=== PATIENT | female | born 1955 | race Caucasian/White ===

== ENCOUNTER → 2017-02-14 | Day surgery (SDC) | payer OTHER | LOC: MSO 12:44 | DX: R19.4 Change in bowel habit (principal); R19.5 Other fecal abnormalities; Z80.0 Family history of malignant neoplasm of digestive organs; Z86.010 Personal history of colon polyps; I10 Essential (primary) hypertension; K64.4 Residual hemorrhoidal skin tags; K64.0 First degree hemorrhoids | CPT/HCPCS: 00810; J3010; J7120 ==

== ENCOUNTER 2017-08-11 10:03 | Inpatient (IN) | payer OTHER ==
[~2017-08-11] VITALS: Ht 152.4 cm; Wt 98.0 kg
[2017-08-14] MEDS ORDERED: RIFAMPIN300 M1 PO (15:19)
[2017-08-14] MEDS ORDERED: PRIMLEV PO (15:23)
[2017-08-14] MEDS ORDERED: TIZANIDINE HYDRO2 M1 PO (15:24)
[2017-08-14] MEDS ORDERED: BUMEX 1MG TA1 MG/TA1 PO (15:25)
[2017-08-14] MEDS ORDERED: DULOXETINE60 MG PO (15:26)
[2017-08-14] MEDS ORDERED: EZETIMIBE-SIMV1 EAC3 PO (15:27)
[2017-08-14] MEDS ORDERED: LISINOPRIL5 MG PO (15:28)
[2017-08-14] MEDS ORDERED: POTASSIUM CHLO20 ME4 PO (15:28)
[2017-08-14] MEDS ORDERED: AMBIEN5 M1 PO (15:29)
[2017-08-14] MEDS ORDERED: PROAIR HFA0.09 MG/AC IH (15:31)
[2017-08-14] MEDS ORDERED: BIOTIN5 M1 PO (15:32)
[2017-08-14] MEDS ORDERED: NATURAL FISH1200 MG PO (15:33)
[2017-08-14] MEDS ORDERED: CRANBERRY400 M2 PO (15:33)
[2017-08-14] MEDS ORDERED: FLAXSEED1000 MG PO (15:34)
[2017-08-14] MEDS ORDERED: IBU800 M1 PO (15:35)
[2017-08-14] MEDS ORDERED: HIPREX PO (15:37)
[2017-08-14] MEDS ORDERED: MULTIVITAMIN1 SGL PO (15:38)
[2017-08-14] MEDS ORDERED: NITROGLYCERIN0.4 M1 SL (15:39)
[2017-08-14] MEDS ORDERED: PROBIOTIC1 EAC1 PO (15:41)
[2017-08-14] MEDS ORDERED: PROMETHAZINE (15:42)
[2017-08-14] MEDS ORDERED: VITAMIN C PURE500 M1 PO (15:44)
[2017-08-14 15:45] VITALS: BP 158/95
[2017-08-14] MEDS ORDERED: PERCOCET 325 MG1 TAB PO (15:48)
[2017-08-14] MEDS ORDERED: OXYCOD (15:49)
[2017-08-14] MEDS ORDERED: APAP (15:49)
[2017-08-14 19:01] VITALS: BP 158/92
[2017-08-15 06:14] VITALS: BP 131/71
[2017-08-15 18:23] VITALS: BP 156/74
[2017-08-16 06:32] VITALS: BP 153/79
[2017-08-16 13:24] LABS: HEMOGLOBIN 11.5 g/dL (12.5-16.0); MEAN CELL VOLUME 92 fl (78-100); MEAN CORPUSCULAR HEMOGLOBIN 29 pg (27-31); MEAN CORPUSCULAR HGB CONC 32 g/dL (33-37); MEAN PLATELET VOLUME 8.9 fl (7.4-10.4); PLATELET COUNT 333 K/mm3 (130-400); RED BLOOD COUNT 3.92 M/mm3 (4.10-5.30); WHITE BLOOD COUNT 8.5 K/mm3 (4.8-10.8)
[2017-08-16 13:35] LABS: BUN/CREATININE RATIO 17.2 (6.0-26.0); CALCIUM 9.1 mg/dL (8.4-10.2); CARBON DIOXIDE 29 mmol/L (22-30); GLUCOSE 113 mg/dL (65-105); LYMPHOCYTE 9 % (20-51); MONOCYTE 4 % (3-10); NEUTROPHILS 72 % (42-75); SODIUM 142 mmol/L (137-145)
[2017-08-16] MEDS ORDERED: RIFAMPIN 3300 MG/CAP PO (15:00)
[2017-08-16] MEDS ORDERED: KLONOPIN 0.5MG0.5 MG PO (15:02)
[2017-08-16 17:49] VITALS: BP 145/76
== END 2017-08-16 20:49 | disposition home or self-care (01) | DRG 863 ==
LOC: MED/SURG 10:03
PROVIDERS: ADMIT Physician Assistant
DX: T81.4XXA Infection following a procedure, initial encounter (principal); B95.62 Methicillin resistant Staphylococcus aureus infection as the cause of diseases classified elsewhere; E03.9 Hypothyroidism, unspecified; I10 Essential (primary) hypertension; F41.9 Anxiety disorder, unspecified; R53.1 Weakness; G89.29 Other chronic pain; Z23 Encounter for immunization
CPT/HCPCS: J3370; J7050

== ENCOUNTER 2017-08-18 15:00 | Outpatient (RCR) | payer OTHER ==
[2017-08-17 18:12] VITALS: BP 162/92
[2017-08-17 18:51] VITALS: BP 169/94
[~2017-08-18] VITALS: Ht 165.1 cm; Wt 98.0 kg
[~2017-08-18 15:00] MED LIST: AMBIEN5 M1 PO; APAP; BIOTIN5 M1 PO; BUMEX 1MG TA1 MG/TA1 PO; CRANBERRY400 M2 PO; DULOXETINE60 MG PO; EZETIMIBE-SIMV1 EAC3 PO; FLAXSEED1000 MG PO; HIPREX PO; IBU800 M1 PO; KLONOPIN 0.5MG0.5 MG PO; LISINOPRIL5 MG PO; MULTIVITAMIN1 SGL PO; NATURAL FISH1200 MG PO; NITROGLYCERIN0.4 M1 SL; OXYCOD; PERCOCET 325 MG1 TAB PO; POTASSIUM CHLO20 ME4 PO; PRIMLEV PO; PROAIR HFA0.09 MG/AC IH; PROBIOTIC1 EAC1 PO; PROMETHAZINE; RIFAMPIN 3300 MG/CAP PO; RIFAMPIN300 M1 PO; TIZANIDINE HYDRO2 M1 PO; VITAMIN C PURE500 M1 PO
[2017-08-18 17:40] VITALS: BP 155/83
[2017-08-18 19:28] VITALS: BP 172/85
[2017-08-21 10:50] VITALS: BP 168/97
[2017-08-24 10:15] VITALS: BP 151/85
[2017-08-28 10:36] VITALS: BP 162/84
[2017-08-28 10:38] VITALS: BP 162/84
[2017-08-30 10:10] VITALS: BP 135/86
[2017-08-31 10:43] VITALS: BP 138/78
[2017-09-06 13:27] VITALS: BP 149/77
[2017-09-11 10:24] VITALS: BP 124/74
[2017-09-18 10:00] VITALS: BP 122/68
[2017-09-19 14:37] VITALS: BP 124/63
[2017-09-19 16:31] VITALS: BP 139/78
[2017-09-20 10:50] VITALS: BP 156/92
[2017-09-25 10:59] VITALS: BP 141/77
[2017-10-02 10:20] VITALS: BP 169/90
[2017-10-10 10:15] VITALS: BP 168/101
[2017-10-10 11:00] VITALS: BP 165/95
[2017-10-14 14:39] VITALS: BP 103/80
== END 2017-10-14 15:00 | disposition home or self-care (01) ==
LOC: AMSURD 15:00
DX: Z45.2 Encounter for adjustment and management of vascular access device (principal)
CPT/HCPCS: J0878; J1644; J2997; J3370; J7050

== ENCOUNTER → 2017-08-21 | Outpatient (CLI) | payer OTHER ==
[2017-08-18 19:28] VITALS: BP 172/85
[2017-08-21 11:48] LABS: CALCIUM 9.8 mg/dL (8.4-10.2); POTASSIUM 3.7 mmol/L (3.6-5.0)
[2017-08-21 12:26] LABS: HEMATOCRIT 39.7 % (37.0-47.0); HEMOGLOBIN 12.4 g/dL (12.5-16.0); MEAN CELL VOLUME 92 fl (78-100); MEAN CORPUSCULAR HEMOGLOBIN 29 pg (27-31); MEAN CORPUSCULAR HGB CONC 31 g/dL (33-37); MEAN PLATELET VOLUME 10.2 fl (7.4-10.4); PLATELET COUNT 346 K/mm3 (130-400); RED CELL DISTRIBUTION WIDTH 14.8 % (11.5-14.5); WHITE BLOOD COUNT 7.4 K/mm3 (4.8-10.8)
[2017-08-21 13:47] LABS: LYMPHOCYTE 23 % (20-51); MONOCYTE 7 % (3-10); NEUTROPHILS 61 % (42-75)
[2017-08-21 22:25] LABS: C-REACTIVE PROTEIN XXX
== END ==
LOC: LAB 10:17
PROVIDERS: Family Medicine
DX: T81.4XXA Infection following a procedure, initial encounter (principal); Z79.2 Long term (current) use of antibiotics; Z51.81 Encounter for therapeutic drug level monitoring; Z45.2 Encounter for adjustment and management of vascular access device

== ENCOUNTER → 2017-08-24 | Outpatient (CLI) | payer OTHER ==
[2017-08-21 10:50] VITALS: BP 168/97
== END ==
LOC: LAB 10:07
DX: Z51.81 Encounter for therapeutic drug level monitoring (principal); Z79.2 Long term (current) use of antibiotics

== ENCOUNTER → 2017-08-28 | Outpatient (CLI) | payer OTHER ==
[2017-08-24 10:15] VITALS: BP 151/85
[2017-08-28 10:37] LABS: HEMATOCRIT 41.1 % (37.0-47.0); HEMOGLOBIN 12.9 g/dL (12.5-16.0); MEAN CELL VOLUME 92 fl (78-100); MEAN CORPUSCULAR HEMOGLOBIN 29 pg (27-31); MEAN CORPUSCULAR HGB CONC 31 g/dL (33-37); MEAN PLATELET VOLUME 9.8 fl (7.4-10.4); PLATELET COUNT 282 K/mm3 (130-400); RED BLOOD COUNT 4.45 M/mm3 (4.10-5.30); WHITE BLOOD COUNT 5.6 K/mm3 (4.8-10.8)
[2017-08-28 10:51] LABS: LYMPHOCYTE 21 % (20-51); MONOCYTE 10 % (3-10); NEUTROPHILS 56 % (42-75)
[2017-08-28 11:06] LABS: BUN/CREATININE RATIO 23.8 (6.0-26.0); CALCIUM 9.4 mg/dL (8.4-10.2); POTASSIUM 3.8 mmol/L (3.6-5.0)
[2017-08-28 20:59] LABS: C-REACTIVE PROTEIN XXX
== END ==
LOC: LAB 09:58
PROVIDERS: Internal Medicine Infectious Disease
DX: L03.312 Cellulitis of back [any part except buttock and flank] (principal)

== ENCOUNTER → 2017-08-31 | Outpatient (CLI) | payer OTHER ==
[2017-08-30 10:10] VITALS: BP 135/86
[2017-08-31 10:46] LABS: HEMATOCRIT 40.1 % (37.0-47.0); HEMOGLOBIN 12.7 g/dL (12.5-16.0); MEAN CELL VOLUME 92 fl (78-100); MEAN CORPUSCULAR HEMOGLOBIN 29 pg (27-31); MEAN CORPUSCULAR HGB CONC 32 g/dL (33-37); MEAN PLATELET VOLUME 9.9 fl (7.4-10.4); PLATELET COUNT 213 K/mm3 (130-400); RED BLOOD COUNT 4.37 M/mm3 (4.10-5.30); RED CELL DISTRIBUTION WIDTH 14.8 % (11.5-14.5); WHITE BLOOD COUNT 4.5 K/mm3 (4.8-10.8)
[2017-08-31 11:14] LABS: LYMPHOCYTE 15 % (20-51); MONOCYTE 8 % (3-10); NEUTROPHILS 58 % (42-75)
[2017-08-31 11:21] LABS: BUN/CREATININE RATIO 19.1 (6.0-26.0); CALCIUM 9.2 mg/dL (8.4-10.2); POTASSIUM 3.9 mmol/L (3.6-5.0)
[2017-09-01 06:41] LABS: C-REACTIVE PROTEIN XXX
== END ==
LOC: LAB 09:58
PROVIDERS: Family Medicine
DX: S31.000A Unspecified open wound of lower back and pelvis without penetration into retroperitoneum, initial encounter (principal); L08.9 Local infection of the skin and subcutaneous tissue, unspecified

== ENCOUNTER → 2017-09-04 | Outpatient (CLI) | payer OTHER ==
[2017-08-31 10:43] VITALS: BP 138/78
[2017-09-04 09:12] LABS: HEMATOCRIT 38.3 % (37.0-47.0); HEMOGLOBIN 12.2 g/dL (12.5-16.0); MEAN CELL VOLUME 90 fl (78-100); MEAN CORPUSCULAR HEMOGLOBIN 29 pg (27-31); MEAN CORPUSCULAR HGB CONC 32 g/dL (33-37); MEAN PLATELET VOLUME 9.4 fl (7.4-10.4); PLATELET COUNT 190 K/mm3 (130-400); RED BLOOD COUNT 4.24 M/mm3 (4.10-5.30); RED CELL DISTRIBUTION WIDTH 14.5 % (11.5-14.5); WHITE BLOOD COUNT 4.8 K/mm3 (4.8-10.8)
--- NOTE | 2017-09-04 09:16 | NUR ---
patient here this am for lab draw per PICC line, this was completed without difficulty, specs to lab, cap was also changed at this time
[2017-09-04 09:18] LABS: BUN/CREATININE RATIO 17.7 (6.0-26.0); CALCIUM 9.1 mg/dL (8.4-10.2); POTASSIUM 3.8 mmol/L (3.6-5.0)
[2017-09-04 09:20] LABS: BAND 2 % (0-10); LYMPHOCYTE 20 % (20-51); MONOCYTE 2 % (3-10); NEUTROPHILS 62 % (42-75)
[2017-09-04 22:00] LABS: C-REACTIVE PROTEIN XXX
== END ==
LOC: LAB 08:35
PROVIDERS: Internal Medicine Infectious Disease
DX: S31.000A Unspecified open wound of lower back and pelvis without penetration into retroperitoneum, initial encounter (principal); L08.9 Local infection of the skin and subcutaneous tissue, unspecified

== ENCOUNTER → 2017-09-11 | Outpatient (CLI) | payer OTHER ==
[2017-09-06 13:27] VITALS: BP 149/77
[2017-09-11 10:33] LABS: EOS % 0.9 % (1.0-5.0); HEMATOCRIT 39.6 % (37.0-47.0); HEMOGLOBIN 12.5 g/dL (12.5-16.0); LYMPH# 1.1 (1.50-4.00); MEAN CELL VOLUME 90 fl (78-100); MEAN CORPUSCULAR HEMOGLOBIN 28 pg (27-31); MEAN CORPUSCULAR HGB CONC 32 g/dL (33-37); MEAN PLATELET VOLUME 9.2 fl (7.4-10.4); MONO # 0.5 (0.20-0.80); NEU # 3.1 (1.40-6.50); PLATELET COUNT 293 K/mm3 (130-400); RED CELL DISTRIBUTION WIDTH 14.3 % (11.5-14.5); WHITE BLOOD COUNT 4.7 K/mm3 (4.8-10.8)
[2017-09-11 10:45] LABS: BUN/CREATININE RATIO 22.6 (6.0-26.0); CALCIUM 9.5 mg/dL (8.4-10.2); POTASSIUM 3.9 mmol/L (3.6-5.0)
[2017-09-11 20:12] LABS: C-REACTIVE PROTEIN XXX
== END ==
LOC: LAB 09:52
PROVIDERS: Internal Medicine Infectious Disease
DX: L08.9 Local infection of the skin and subcutaneous tissue, unspecified (principal)

== ENCOUNTER → 2017-09-18 | Outpatient (CLI) | payer OTHER ==
[2017-09-11 10:24] VITALS: BP 124/74
[2017-09-18 10:08] LABS: HEMATOCRIT 40.7 % (37.0-47.0); HEMOGLOBIN 12.7 g/dL (12.5-16.0); LYMPH# 1.4 (1.50-4.00); MEAN CELL VOLUME 89 fl (78-100); MEAN CORPUSCULAR HEMOGLOBIN 28 pg (27-31); MEAN CORPUSCULAR HGB CONC 31 g/dL (33-37); MEAN PLATELET VOLUME 9.8 fl (7.4-10.4); MONO # 0.6 (0.20-0.80); NEU # 3.9 (1.40-6.50); PLATELET COUNT 303 K/mm3 (130-400); RED BLOOD COUNT 4.57 M/mm3 (4.10-5.30); RED CELL DISTRIBUTION WIDTH 13.8 % (11.5-14.5); WHITE BLOOD COUNT 5.8 K/mm3 (4.8-10.8)
[2017-09-18 10:15] LABS: BUN/CREATININE RATIO 22.4 (6.0-26.0); CALCIUM 9.1 mg/dL (8.4-10.2); POTASSIUM 3.8 mmol/L (3.6-5.0)
[2017-09-18 20:46] LABS: C-REACTIVE PROTEIN XXX
== END ==
LOC: LAB 09:39
PROVIDERS: Internal Medicine Infectious Disease
DX: L08.9 Local infection of the skin and subcutaneous tissue, unspecified (principal)

== ENCOUNTER → 2017-09-19 | Outpatient (CLI) | payer OTHER ==
[2017-09-18 10:00] VITALS: BP 122/68
== END ==
LOC: RAD 14:08
DX: Z45.2 Encounter for adjustment and management of vascular access device (principal)

== ENCOUNTER → 2017-09-20 | Outpatient (CLI) | payer OTHER ==
[2017-09-19 16:31] VITALS: BP 139/78
== END ==
LOC: LAB 10:29
DX: L08.9 Local infection of the skin and subcutaneous tissue, unspecified (principal); Z79.2 Long term (current) use of antibiotics; Z51.81 Encounter for therapeutic drug level monitoring

== ENCOUNTER → 2017-09-25 | Outpatient (CLI) | payer OTHER ==
[2017-09-20 10:50] VITALS: BP 156/92
[2017-09-25 11:31] LABS: HEMOGLOBIN 13.1 g/dL (12.5-16.0); LYMPH# 1.2 (1.50-4.00); MEAN CELL VOLUME 89 fl (78-100); MEAN CORPUSCULAR HEMOGLOBIN 28 pg (27-31); MEAN CORPUSCULAR HGB CONC 32 g/dL (33-37); MONO # 0.4 (0.20-0.80); PLATELET COUNT 249 K/mm3 (130-400); RED BLOOD COUNT 4.63 M/mm3 (4.10-5.30); RED CELL DISTRIBUTION WIDTH 13.5 % (11.5-14.5); WHITE BLOOD COUNT 5.6 K/mm3 (4.8-10.8)
[2017-09-25 11:46] LABS: BUN/CREATININE RATIO 28.6 (6.0-26.0); CALCIUM 9.3 mg/dL (8.4-10.2); POTASSIUM 3.8 mmol/L (3.6-5.0)
[2017-09-25 15:42] LABS: C-REACTIVE PROTEIN XXX
== END ==
LOC: LAB 10:44
PROVIDERS: Internal Medicine Infectious Disease
DX: L08.9 Local infection of the skin and subcutaneous tissue, unspecified (principal)

== ENCOUNTER → 2017-10-02 | Outpatient (CLI) | payer OTHER ==
[2017-09-25 10:59] VITALS: BP 141/77
[2017-10-02 10:59] LABS: BASO # 0.2 (0.02-0.10); HEMATOCRIT 44.1 % (37.0-47.0); HEMOGLOBIN 13.6 g/dL (12.5-16.0); LYMPH# 1.8 (1.50-4.00); MEAN CELL VOLUME 90 fl (78-100); MEAN CORPUSCULAR HEMOGLOBIN 28 pg (27-31); MEAN CORPUSCULAR HGB CONC 31 g/dL (33-37); MEAN PLATELET VOLUME 10.5 fl (7.4-10.4); MONO # 0.4 (0.20-0.80); NEU # 3.5 (1.40-6.50); PLATELET COUNT 264 K/mm3 (130-400); RED BLOOD COUNT 4.93 M/mm3 (4.10-5.30); RED CELL DISTRIBUTION WIDTH 13.6 % (11.5-14.5); WHITE BLOOD COUNT 5.8 K/mm3 (4.8-10.8)
[2017-10-02 11:12] LABS: ALBUMIN 3.7 g/dL (3.5-5.0); TOTAL BILIRUBIN 0.6 mg/dL (0.2-1.3); TOTAL PROTEIN 6.6 g/dL (6.3-8.2)
[2017-10-02 11:17] LABS: BUN/CREATININE RATIO 24.1 (6.0-26.0); CALCIUM 9.2 mg/dL (8.4-10.2)
[2017-10-02 19:22] LABS: C-REACTIVE PROTEIN XXX
== END ==
LOC: LAB 10:20
PROVIDERS: Internal Medicine Infectious Disease
DX: L08.9 Local infection of the skin and subcutaneous tissue, unspecified (principal)

== ENCOUNTER → 2017-10-10 | Outpatient (CLI) | payer OTHER ==
[2017-10-02 10:20] VITALS: BP 169/90
[2017-10-10 10:35] LABS: BASO # 0.2 (0.02-0.10); HEMATOCRIT 44.5 % (37.0-47.0); HEMOGLOBIN 13.8 g/dL (12.5-16.0); LYMPH# 1.8 (1.50-4.00); MEAN CELL VOLUME 89 fl (78-100); MEAN CORPUSCULAR HEMOGLOBIN 28 pg (27-31); MEAN CORPUSCULAR HGB CONC 31 g/dL (33-37); MONO # 0.6 (0.20-0.80); NEU # 3.4 (1.40-6.50); PLATELET COUNT 252 K/mm3 (130-400); RED BLOOD COUNT 4.99 M/mm3 (4.10-5.30); RED CELL DISTRIBUTION WIDTH 13.8 % (11.5-14.5)
[2017-10-10 10:41] LABS: CALCIUM 9.2 mg/dL (8.4-10.2); POTASSIUM 3.8 mmol/L (3.6-5.0)
[2017-10-10 22:48] LABS: C-REACTIVE PROTEIN XXX
== END ==
LOC: LAB 10:06
PROVIDERS: Internal Medicine Infectious Disease
DX: L08.9 Local infection of the skin and subcutaneous tissue, unspecified (principal)

== ENCOUNTER 2020-05-23 14:24 | Emergency (ER) | payer OTHER ==
[~2020-05-23] VITALS: Ht 152.4 cm; Wt 100.0 kg
[~2020-05-23 14:24] MED LIST changes: +LISINOPRIL10 MG PO; -LISINOPRIL5 MG PO
[2020-05-23 14:52] VITALS: BP 137/100
== END 2020-05-23 17:00 | disposition other institution (70) ==
LOC: ED 14:24
DX: R69 Illness, unspecified (principal)

== ENCOUNTER → 2021-08-20 | Outpatient (CLI) | payer MEDICARE | LOC: LAB 12:20 | DX: Z20.822 Contact with and (suspected) exposure to COVID-19 (principal) ==

== ENCOUNTER → 2022-01-03 | Day surgery (SDC) | payer MEDICARE | END | disposition home or self-care (01) | LOC: MSO 07:17 | DX: Z12.11 Encounter for screening for malignant neoplasm of colon (principal); Z86.010 Personal history of colon polyps; Z80.0 Family history of malignant neoplasm of digestive organs; K57.30 Diverticulosis of large intestine without perforation or abscess without bleeding; C75.0 Malignant neoplasm of parathyroid gland | CPT/HCPCS: 00812; J2704; J3010; J7120 ==

== ENCOUNTER 2022-04-21 00:58 | Emergency (ER) | payer MEDICARE ==
[~2022-04-21] VITALS: Ht 152.4 cm; Wt 100.0 kg
[2022-04-21] MEDS ORDERED: ZESTRIL20 M1 PO (01:17)
[2022-04-21] MEDS ORDERED: RASUVO SQ (01:18)
[2022-04-21] MEDS ORDERED: FOLIC ACID1 MG PO (01:19)
[2022-04-21] MEDS ORDERED: ZETIA10 M1 PO (01:20)
[2022-04-21 02:02] VITALS: BP 153/92
== END 2022-04-21 02:02 | disposition home or self-care (01) ==
LOC: ED 00:58
DX: F45.8 Other somatoform disorders (principal); E66.01 Morbid (severe) obesity due to excess calories; Z68.41 Body mass index [BMI] 40.0-44.9, adult; Z28.311 Partially vaccinated for COVID-19

== ENCOUNTER → 2024-07-03 | Outpatient (CLI) | payer MEDICARE ==
[~2024-07-03] MED LIST changes: +FOLIC ACID1 MG PO; +Iohexol 300 - 100 ML VIAL IV ONE; +RASUVO SQ; +ZESTRIL20 M1 PO; +ZETIA10 M1 PO
== END ==
LOC: RAD 08:30
DX: K57.30 Diverticulosis of large intestine without perforation or abscess without bleeding (principal); M47.816 Spondylosis without myelopathy or radiculopathy, lumbar region
CPT/HCPCS: Q9967

== ENCOUNTER → 2024-12-09 | Outpatient (CLI) | payer MEDICARE ==
[~2024-12-09] MED LIST changes: -Iohexol 300 - 100 ML VIAL IV ONE
== END ==
LOC: RAD 14:35
DX: J22 Unspecified acute lower respiratory infection (principal)